=== PATIENT | male | born 1975 | race Caucasian/White ===

== ENCOUNTER 2019-02-05 20:59 | Emergency (ER) | payer BC ==
[~2019-02-05] VITALS: Ht 175.3 cm; Wt 83.9 kg
--- NOTE | 2019-02-05 21:49 | RAD ---
Study: 1. NECK SOFT TISSUE 2. CHEST PA LATERAL Indication: Foreign body. Comparison: None. Findings: Chest: No radiopaque foreign body seen within the visualized airway or along the expected course of the esophagus. No pneumomediastinum. No lobar consolidation, pleural effusion or pneumothorax. Left upper lobe granuloma. NECK: The epiglottis is normal in thickness. No radiopaque foreign body seen along the airway or upper digestive tract. Normal prevertebral soft tissue thickness. The partially evaluated osseous structures are grossly intact. Impression: The radiographic appearance of the neck and chest are within normal limits and there is no evidence for a retained foreign body along the aerodigestive tract. Electronically signed by: JUNIOR SOSA MD (02/05/2019 9:46 PM) [facility]
--- NOTE | 2019-02-05 21:55 | PHYS DOC ---
Past History Past Medical History: No Pertinent History Past Surgical History: No Surgical History Alcohol Use: Occasionally Drug Use: None Adult General Chief Complaint Chief Complaint: SWALLOWED FORIEGN BODY HPI HPI 43-year-old male presents with a piece of meat stuck in his throat. Patient tells me he feels like he has a piece of "burnt ends" stuck in his esophagus above the stomach. The discomfort is in his epigastric area. He denies difficulty breathing. If he eats or drinks anything, it makes him vomit. The food does not come back up when that happens. He has had this happen 3 or 4 times in the past. The last time was at least 6 months ago. It usually resolves on its own at about 20 minutes. The patient waited 2 hours before coming to emergency room this time. It has never taken this long to go away. Patient denies fever or chills. He is never had an EGD in the past. He has no other complaints. Review of Systems Review of Systems Constitutional: Denies fever or chills [] Eyes: Denies change in visual acuity, redness, or eye pain [] HENT: Denies nasal congestion or sore throat [] Respiratory: Denies cough or shortness of breath [] Cardiovascular: No additional information not addressed in HPI [] GI: Globus feeling in the epigastrium. Denies abdominal pain, bloody stools or diarrhea [] : Denies dysuria or hematuria [] Musculoskeletal: Denies back pain or joint pain [] Integument: Denies rash or skin lesions [] Neurologic: Denies headache, focal weakness or sensory changes [] Endocrine: Denies polyuria or polydipsia [] All other systems were reviewed and found to be within normal limits, except as documented in this note. Current Medications Current Medications Current Medications Medications (Trade) Dose Ordered Sig/Shelby Start Time Stop Time Status Last Admin Dose Admin Famotidine (Pepcid Vial) 20 mg 1X ONCE 02/05/19 22:00 02/05/19 22:01 UNV Glucagon (Glucagen Kit) 1 mg 1X ONCE 02/05/19 22:00 02/05/19 22:01 UNV Ondansetron HCl (Zofran) 4 mg 1X ONCE 02/05/19 22:00 02/05/19 22:01 UNV Pantoprazole Sodium (Protonix Vial) 40 mg 1X ONCE 02/05/19 22:00 02/05/19 22:01 UNV Allergies Allergies Allergies Coded Allergies Type Severity Reaction Last Updated Verified No Known Drug Allergies 02/05/19 No Physical Exam Physical Exam Constitutional: Well developed, well nourished, no acute distress, non-toxic appearance. [] HENT: Normocephalic, atraumatic, bilateral external ears normal, oropharynx moist, no oral exudates, nose normal. [] Eyes: PERRLA, EOMI, conjunctiva normal, no discharge. [] Neck: Normal range of motion, no tenderness, supple, no stridor. [] Cardiovascular:Heart rate regular rhythm, no murmur [] Lungs & Thorax: Bilateral breath sounds clear to auscultation [] Abdomen: Bowel sounds normal, soft, no tenderness, no masses, no pulsatile masses. [] Skin: Warm, dry, no erythema, no rash. [] Back: No tenderness, no CVA tenderness. [] Extremities: No tenderness, no cyanosis, no clubbing, ROM intact, no edema. [] Neurologic: Alert and oriented X 3, normal motor function, normal sensory function, no focal deficits noted. [] Psychologic: Affect normal, judgement normal, mood normal. [] Current Patient Data Vital Signs Vital Signs Date Time Temp Pulse Resp B/P (MAP) Pulse Ox O2 Delivery O2 Flow Rate FiO2 02/05/19 21:15 98.1 70 18 98 Room Air EKG EKG [] Radiology/Procedures Radiology/Procedures [] Impressions: Study: 1. NECK SOFT TISSUE 2. CHEST PA LATERAL Indication: Foreign body. Comparison: None. Findings: Chest: No radiopaque foreign body seen within the visualized airway or along the expected course of the esophagus. No pneumomediastinum. No lobar consolidation, pleural effusion or pneumothorax. Left upper lobe granuloma. NECK: The epiglottis is normal in thickness. No radiopaque foreign body seen along the airway or upper digestive tract. Normal prevertebral soft tissue thickness. The partially evaluated osseous structures are grossly intact. Impression: The radiographic appearance of the neck and chest are within normal limits and there is no evidence for a retained foreign body along the aerodigestive tract. Electronically signed by: JUNIOR SOSA MD (02/05/2019 9:46 PM) [facility] DICTATED AND SIGNED BY: JUNIOR SOSA MD DATE: 02/05/192145 CC: KARLEE CIFUENTES DO; PCP,SUSAN ~ Course & Med Decision Making Course & Med Decision Making Pertinent Labs and Imaging studies reviewed. (See chart for details) The patient's x-rays did not show obvious foreign body. Given the patient milligram of glucagon IV, 20 mg of Pepcid IV, 40 mg of Protonix IV, and 4 mg of Zofran IV. The patient began to feel like the option was going down, and then he had vomiting. He did vomit up a large piece of meat. He realizes he did not chew it well at all. He is now able to swallow liquids without difficulty. He feels much better. He is stable for discharge at this time. [] Dragon Disclaimer Dragon Disclaimer This electronic medical record was generated, in whole or in part, using a voice recognition dictation system. Departure Departure: Impression: Primary Impression: Obstruction of esophagus due to food impaction Disposition: 01 HOME, SELF-CARE Condition: IMPROVED Referrals: PCPSUSAN (PCP) Patient Instructions: Swallowed Foreign Body, Adult, [id number] KARLEE CIFUENTES DO Feb 05, 2019 21:54
[2019-02-05] MEDS ORDERED: PANTOPRAZOLE IV 40 MG VIAL. IVP ONE (22:00)
[2019-02-05] MEDS ORDERED: GLUCAGON,HUMAN RECOMBINANT 1 MG KIT. IV ONE (22:00)
[2019-02-05] MEDS ORDERED: ONDANSETRON PF 4 MG/2 ML VIAL. IVP ONE (22:00)
[2019-02-05] MEDS ORDERED: FAMOTIDINE 20 MG/2 ML VIAL IVP ONE (22:00)
[2019-02-05 22:12] LABS: BASO # 0.1 x10^3/uL (0.0-0.2); BASO % 1 % (0-3); EOS # 0.2 x10^3/uL (0.0-0.7); EOS % 2 % (0-3); HEMATOCRIT 42.8 % (39.0-53.0); HEMOGLOBIN 14.2 g/dL (13.0-17.5); LYMPH # 1.3 x10^3/uL (1.0-4.8); LYMPH % 12 % (24-48); MEAN CORPUSCULAR HEMOGLOBIN 31 pg (25-35); MEAN CORPUSCULAR HGB CONC 33 g/dL (31-37); MEAN CORPUSCULAR VOLUME 94 fL (79-100); MONO # 0.6 x10^3/uL (0.0-1.1); MONO % 6 % (0-9); NEUT # 8.7 x10^3uL (1.8-7.7); NEUT % 80 % (31-73); PLATELET COUNT 215 x10^3/uL (140-400); RED BLOOD COUNT 4.56 x10^6/uL (4.30-5.70); RED CELL DISTRIBUTION WIDTH 12.5 % (11.5-14.5); WHITE BLOOD COUNT 10.9 x10^3/uL (4.0-11.0)
[2019-02-05 22:18] VITALS: BP 137/86
[2019-02-05 22:24] LABS: ALBUMIN 4.6 g/dL (3.4-5.0); ALBUMIN/GLOBULIN RATIO 1.3 (1.0-1.7); CALCIUM 9.1 mg/dL (8.5-10.1); GFR 81.2; TOTAL BILIRUBIN 0.6 mg/dL (0.2-1.0); TOTAL PROTEIN 8.2 g/dL (6.4-8.2)
== END 2019-02-05 22:45 | disposition home or self-care (01) ==
LOC: ER 20:59
DX: K22.2 Esophageal obstruction (principal); K56.49 Other impaction of intestine
CPT/HCPCS: 36415; 70360; 71046; 80053; 85025; 96374; 96375; 99285; C9113; J1610; J2405; J3490